=== PATIENT | male | born 1950 | race Caucasian/White ===

== ENCOUNTER 2017-03-15 19:38 | Emergency (ER) | payer MEDICARE, BC ==
[2017-03-15] MEDS ORDERED: KETOROLAC TROMETHAMINE 60 MG/2 ML VIAL IM ONE ×2 (19:57→20:04)
--- NOTE | 2017-03-15 20:10 | ERNOTE ---
Upper Extremity HPI - Narrative Date of Service: 03/15/17 - General Extremities Pain Location: shoulder: left Time Seen by Provider: 03/15/17 19:48 Source: patient Exam Limitations: no limitations - Immun/Allergies/Home Medications Immunizations: IMMUNIZATION HX Immunizations Up to Date Yes History of Influenza Vaccine Yes Hx Pneumococcal Vaccination Yes Allergies/Adverse Reactions: Allergies Allergy/AdvReac Type Severity Reaction Status Date / Time No Known Allergies Allergy Verified 03/15/17 19:48 Home Medications: HOME MEDICATIONS Aspirin [Aspirin Chewable] 81 mg PO DAILY 08/24/12 [Last Taken 08/24/12 08:00] Levothyroxine Sodium [Synthroid] 100 mcg PO DAILY 08/24/12 [Last Taken 08/24/12 08:00] Simvastatin [Zocor] 20 mg PO HS 08/24/12 [Last Taken 08/24/12 08:00] metFORMIN HCL [Glucophage] 500 mg PO BIDWM 08/25/12 [Last Taken 08/24/12] Glimepiride [Amaryl] 2 mg PO DAILY 06/07/14 [Last Taken Unknown] Albuterol Sulfate [Proair Hfa] 1 - 2 puff IH Q4H PRN 06/12/14 [Last Taken Unknown] Blood Sugar Diagnostic, Drum [Accu-Chek Compact] 1 each MC BID 06/12/14 [Last Taken Unknown] Cyanocobalamin [Vitamin B-12] 1,000 mcg PO DAILY 06/12/14 [Last Taken Unknown] Nitroglycerin [Nitrostat] 0.4 mg SL Q5MIN PRN 06/12/14 [Last Taken Unknown] [place]-3 Fatty Acids/Fish Oil [Fish Oil 1,000 mg Capsule] 1 each PO DAILY [Last Taken Unknown] Metoclopramide HCl [Reglan] 10 mg PO QID 11/30/14 [Last Taken Unknown] Pantoprazole Sodium [Protonix] 40 mg PO DAILY 11/30/14 [Last Taken Unknown] Albuterol Sulfate/Ipratropium [Duoneb 2.5-0.5MG/3ML Soln] 3 ml IH Q6H #60 nebu 09/16/15 [Last Taken Unknown] Lisinopril [Zestril] 10 mg PO DAILY 12/19/15 [Last Taken Unknown] oxyCODONE HCL/ACETAMINOPHEN [Percocet 5 MG/325 MG] 1 tab PO Q4H PRN #20 tab [Last Taken Unknown] - History of Present Illness Narrative: Pt. comes in with c/o L shoulder pain after he was holding a grocery bag and dropped it and went to pick it up again and felt several pops in his shoulder. Pt. denies any numbness, tingling, SOB, CP, fever, recent illness, alleviating factors but states that movement exacerbates the pain. Review of Systems - Review of Systems Constitutional: Present: no symptoms reported. Absent: recent illness, fever, chills, weakness, fatigue, malaise EYE: Present: no symptoms reported ENT: Present: no symptoms reported Respiratory: Present: no symptoms reported. Absent: shortness of breath, cough , wheezing Cardiology: Present: no symptoms reported. Absent: chest pain, palpitations, edema Gastrointestinal/Abdominal: Present: no symptoms reported Genitourinary: Present: no symptoms reported Musculoskeletal: Present: joint pain - L shoulder Skin: Present: no symptoms reported. Absent: rash, change in hair/nails Neurological: Present: no symptoms reported. Absent: headache, dizziness/light- headedness, numbness, tingling Endocrine: Present: no symptoms reported Hematologic/Lymphatic: Present: no symptoms reported All Other Systems: All systems neg except as marked - Patient's Past Medical History Patient History - Medical: Diabetes Type 2, GERD, Hypothyroidism Patient History - Cardiac/Respiratory: Cardiac Arrest, COPD Patient History - Cancer: No Hx of Cancer Patient History - Surgical Procedures: T & A, Other Patient History - Other: None - Family History Father Family History - Medical: History Unknown Family History - Cardiac/Respiratory: No pertinent hx - Social History Living Situations: home Abuse History: No History of abuse Psych History: Hx of Anxiety, Hx of Depression Smoking Status: Never smoker Alcohol Use: none Drug Use: none - Immunizations Immunizations Up to Date: Yes Hx Pneumococcal Vaccination: Yes History of Influenza Vaccine: Yes Physical Exam - Physical Exam General Appearance: Present: wd/wn, alert, no apparent distress Head Exam: Present: normal inspection, no evidence of injury Eye Exam: Normal inspection: bilateral Neck: Present: normal inspection, nontender. Absent: lymphadenopathy (R), lymphadenopathy (L) Respiratory: Present: no respiratory distress, normal breath sounds, no accessory muscle use, chest nontender, lungs clear Cardiovascular/Chest: Present: regular rate, rhythm, no murmur, normal peripheral pulses Back Exam: Present: normal inspection Extremity Exam: Present: decreased range of motion - L shoulder abduction Neurological Exam: Present: alert, oriented, normal mood/affect, no motor/ sensory deficits Skin Exam: Present: normal color, warm/dry. Absent: pallor, skin rash ED Progress - Vital Signs Patient's Vital Signs:: I have reviewed the patient's vital signs. Vital Signs: Vital Signs 03/15/17 19:43 Temperature 36.8 C Pulse Rate 101 H Respiratory 18 Rate Blood Pressure 162/86 O2 Sat by Pulse 98 Oximetry - X-Ray X-Ray #1 X-Ray: shoulder Interpretation: Reviewed by me X-ray Comments: No obvious ossious abnormality - Progress/Reassessment Chief Complaint: Shoulder Injury/Pain Progress:: Unchanged Departure Clinical Impression: Biceps muscle strain Qualifiers: Encounter type: initial encounter Laterality: left Qualified Code(s): S46.212A - Strain of muscle, fascia and tendon of other parts of biceps, left arm, initial encounter - Departure Disposition: Home self-care Condition: Good Instructions: Bicipital Tendinitis Additional Instructions: Please call orthopedics office tomorrow for appointment and follow up with them ROME. Wear shoulder immobilizer as much as possible when up. Sleep propped up on pillows with one behind your left arm and supporting at elbow. Referrals: Abel Ramirez MD [Primary Care Provider] - Prescriptions: oxyCODONE HCL/ACETAMINOPHEN [Percocet 5 MG/325 MG] 1 tab PO Q4H PRN #20 tab PRN Reason: Pain
[2017-03-15 20:40] VITALS: BP 115/78
== END 2017-03-15 20:38 | disposition home or self-care (01) ==
LOC: ER 19:38
DX: S46.212A Strain of muscle, fascia and tendon of other parts of biceps, left arm, initial encounter (principal); X58.XXXA Exposure to other specified factors, initial encounter; Y93.89 Activity, other specified

== ENCOUNTER 2019-03-02 16:44 | Inpatient (IN) ==
[2019-03-02] MEDS ORDERED: ASPIRIN 81 MG TAB.CHEW PO ONE (17:07)
[2019-03-02 17:11] LABS: Hematocrit 34.3 % (42.0-52.0); Hemoglobin 11.1 gm/dL (13.5-18.0); Mean Cell Volume 79.2 fl (78-100); Mean Corpuscular Hemoglobin 25.6 pg (27-31); Mean Corpuscular Hgb Conc 32.4 g/dl (32-36); Mean Platelet Volume 7.6 fl (8-11.3); Platelet Count 249 K/mm3 (150-450); Red Blood Count 4.33 M/mm3 (4.7-6.0); Red Cell Distribution Width 17.7 % (11.5-14.0); White Blood Count 6.9 K/mm3 (4.0-10.5)
[2019-03-02] MEDS ORDERED: KETOROLAC TROMETHAMINE 30 MG/ML VIAL IV ONE (17:11)
--- NOTE | 2019-03-02 17:15 | ERNOTE ---
Chest Pain/Cardiac HPI Chief Complaint: Chest Pain Time Seen by Provider: 03/02/19 17:04 Source: patient Exam Limitations: no limitations Immunizations: IMMUNIZATION HX Immunizations Up to Date Yes History of Influenza Vaccine Yes Hx Pneumococcal Vaccination Yes Allergies/Adverse Reactions: Allergies No Known Allergies Allergy (Verified 03/02/19 16:50) Home Medications: HOME MEDICATIONS Aspirin [Aspirin Chewable] 81 mg PO DAILY 08/24/12 [Last Taken 08/24/12 08:00] Blood Sugar Diagnostic, Drum [Accu-Chek Compact] 1 ea MC BID 06/12/14 [Last Taken Unknown] Cyanocobalamin [Vitamin B-12] 1,000 mcg PO DAILY 06/12/14 [Last Taken Unknown] Nitroglycerin [Nitrostat] 0.4 mg SL Q5MIN PRN 06/12/14 [Last Taken Unknown] psyllium seed (sugar) oral powder 1 tbs PO DAILY 11/30/17 [Last Taken Unknown] sertraline 50 mg tablet 50 mg PO DAILY 11/30/17 [Last Taken Unknown] metformin ER 500 mg tablet,extended release 24 hr 1,000 mg PO BID #360 tab 03/05/18 [Last Taken Unknown] folic acid 1 mg tablet 1 mg PO DAILY 04/22/18 [Last Taken Unknown] glycopyrrolate 9 mcg-formoterol 4.8 mcg HFA aerosol inhaler 2 inh IH BID #10.7 g 04/22/18 [Last Taken Unknown] cetirizine 10 mg tablet 10 mg PO DAILY PRN #90 tab 06/11/18 [Last Taken Unknown] alprazolam 0.25 mg tablet See Rx Instructions .ROUTE .COMPLEX #30 tablet 06/14/18 [Last Taken Unknown] insulin lispro (U-100) 100 unit/mL subcutaneous pen See Rx Instructions SUBCUT TID #15 ml 07/08/18 [Last Taken Unknown] blood sugar diagnostic strips See Dose Instructions .ROUTE .MEDSUPPLY #100 ea 07/20/18 [Last Taken Unknown] blood-glucose meter kit See Dose Instructions .ROUTE .MEDSUPPLY #1 ea 07/20/18 [Last Taken Unknown] pen needle, diabetic 32 gauge x 5/32" See Dose Instructions .ROUTE .MEDSUPPLY #100 ea 07/26/18 [Last Taken Unknown] diltiazem CD 240 mg capsule,extended release 24 hr 240 mg PO DAILY #90 cap 08/25/18 [Last Taken Unknown] duloxetine 30 mg capsule,delayed release 30 mg PO DAILY #30 cap 08/25/18 [Last Taken Unknown] ipratropium 20 mcg-albuterol 100 mcg/actuation mist for inhalation 1 puff IH QID #4 g 09/15/18 [Last Taken Unknown] levothyroxine 100 mcg tablet See Rx Instructions .ROUTE .COMPLEX #90 tablet 09/30/18 [Last Taken Unknown] ipratropium-albuterol 0.5 mg-3 mg(2.5 mg base)/3 mL nebulization soln 3 ml IH Q6H #60 nebu 10/04/18 [Last Taken Unknown] insulin glargine (U-100) 100 unit/mL (3 mL) subcutaneous pen 28 unit SUBCUT BID #15 ml 10/13/18 [Last Taken Unknown] lancets 30 gauge See Dose Instructions .ROUTE .MEDSUPPLY #100 ea 10/13/18 [Last Taken Unknown] THC Tablets 0 .ROUTE .MEDSUPPLY #1 ea 11/10/18 [Last Taken Unknown] atorvastatin 20 mg tablet 20 mg PO DAILY #90 tab 01/11/19 [Last Taken Unknown] omeprazole 40 mg capsule,delayed release 40 mg PO DAILY #90 cap 01/11/19 [Last Taken Unknown] losartan 50 mg tablet 50 mg PO DAILY #90 tab 01/12/19 [Last Taken Unknown] oxycodone 10 mg tablet 10 mg PO Q12H PRN #40 tab 01/13/19 [Last Taken Unknown] pen needle, diabetic 32 gauge x 5/32" See Dose Instructions .ROUTE .MEDSUPPLY #200 ea 02/09/19 [Last Taken Unknown] Narrative: Patient presents with left-sided chest wall pain that started approximately 3 hours ago. Pain is reproducible on palpation and is similar pain that he has had for the past 15 years. He is even had a cardiac catheterization to rule out any coronary artery disease as it relates to this chest pain, and the cardiac cath was negative. Timing: constant Severity/Quality: moderate Location: left chest Chest Pain Radiation: no radiation Activities at Onset: none Modifying Factors - Improves: Present: nothing Modifying Factors - Worsens: Present: other - palpation Nitro Today/Relief: no nitro taken today Aspirin Treatment Today: no aspirin today Associated Symptoms: Present: denies symptoms Prior Chest Pain/Cardiac Workup: Reports: cardiac cath - negative Prior Treatment: Reports: recently seen, treated by physician Review of Systems - Review of Systems Constitutional: Present: See HPI EYE: Present: no symptoms reported ENT: Present: no symptoms reported Respiratory: Present: no symptoms reported Cardiology: Present: See HPI Gastrointestinal/Abdominal: Present: no symptoms reported Genitourinary: Present: no symptoms reported Musculoskeletal: Present: no symptoms reported Skin: Present: no symptoms reported Neurological: Present: no symptoms reported Endocrine: Present: no symptoms reported Hematologic/Lymphatic: Present: no symptoms reported Psych: Present: no symptoms reported Medical History (Updated 03/02/19 @ 18:23 by Tiago Pedersen DO) 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 started on Chemo therapy. right middle lobe Thrombopenia (Chronic) Onset Date: ~05/24/18 Hypothyroidism (Chronic) Onset Date: Unknown Hyperlipidemia (Chronic) Onset Date: Unknown GERD (gastroesophageal reflux disease) (Chronic) Onset Date: ~2011 Type 2 diabetes mellitus (Chronic) Onset Date: Unknown controlled with A1c of 6.9 Lantos dose will be decreased to 28 units from 30 twice a day and he will be started on sliding scale before each meal COPD (chronic obstructive pulmonary disease) (Chronic) Onset Date: Unknown Atrial flutter (Chronic) Onset Date: ~2012 s/p DWIGHT cardioversion Cardiac cath 08/28-WNL with normal EF Anxiety and depression (Chronic) Onset Date: Unknown Pneumonitis Onset Date: ~11/17/18 Vertigo Adenocarcinoma of right lung, stage 4 Bone metastasis Onset Date: ~11/17/18 Degenerative joint disease Onset Date: Unknown Hypertension Onset Date: Unknown Hypomagnesemia Onset Date: ~11/17/18 Multiple pulmonary nodules Onset Date: Unknown 06/08/2017--CT chest without contrast. Stable pulmonary nodules. No interval detrimental change. IRAIS (obstructive sleep apnea) Onset Date: Unknown Obesity Onset Date: Unknown Restless leg syndrome Onset Date: Unknown H/O pulmonary function tests Onset Date: ~2015 obstructive, restrictive, mixed ventilator defect preserved ratio impaired spirometry with FEV1-2.29L (60%) Surgical History: Surgical History (Updated 04/29/18 @ 15:57 by Boston Lee) H/O adenoidectomy Onset Date: ~2011 H/O cardiac catheterization Onset Date: ~2012 H/O colonoscopy Onset Date: ~2015 2014-Dr Bro-tubulovillous adenoma, serrated adenoma. 01/2015-UI-7 polyps treated. Tubular adenoma x3, hyperplastic polyp x1. Recheck in 6 months. 2016-Tubular adenoma. Recheck 1 year. History of cardioversion Onset Date: ~2012 Dr Lynn-DWIGHT guided History of esophagogastroduodenoscopy (EGD) Onset Date: ~2014 Hx of tonsillectomy Onset Date: ~2011 Dr Hayward-with directy laryngoscopy with bx, rigid esophagoscopy, flex bronchoscopy, nasal endoscopy, with biopsy. Benign. Family History: Family History (Updated 11/30/17 @ 16:42 by Soledad Elder RN) Father Epilepsy Social History: (Last Updated 03/02/19 @ 16:50 by Cain Rose RN) Social History: long-term: No Marital status: lives independently: No household members: spouse current occupational status: retired Highest education level completed: 6th grade Service: No Tobacco: Smoking Status: Former smoker Alcohol: alcohol intake: former Substance Use: substance use type: unknown Dietary Habits: caffeine: Yes Type: coffee Physical Exam - Physical Exam General Appearance: Present: wd/wn, alert, moderate distress Head Exam: Present: normal inspection, no evidence of injury Eye Exam: Normal inspection: bilateral, PERRL: bilateral Ears, Nose, Throat: Present: normal ENT inspection, H, normal pharynx Neck: Present: normal inspection, nontender Respiratory: Present: no respiratory distress, normal breath sounds, no accessory muscle use, lungs clear, chest tenderness - That reproduces his pain on palpation Cardiovascular/Chest: Present: no murmur, normal peripheral pulses, tachycardia Gastrointestinal/Abdominal: Present: normal bowel sounds, nontender, nondistended, soft, no organomegaly Rectal Exam: Present: deferred Male Genitals Exam: Present: deferred Back Exam: Present: normal inspection, normal range of motion Extremity Exam: Present: normal inspection, non-tender, no edema, normal range of motion Neurological Exam: Present: alert, oriented, normal mood/affect Skin Exam: Present: normal color, warm/dry Lymphatic Exam: Present: no adenopathy Progress - Results and Orders Patient's Lab Results:: I have reviewed the patient's lab results. - Vital Signs Patient's Vital Signs:: I have reviewed the patient's vital signs. Vital Signs: Vital Signs 03/02/19 16:44 03/02/19 16:56 Temperature 36.1 C Pulse Rate 108 H 85 Respiratory Rate 22 H Blood Pressure 158/69 H O2 Sat by Pulse Oximetry 89 L - EKG EKG #1 EKG: NSR EKG read: Reviewed by me - X-Ray X-Ray #1 X-Ray: chest Interpretation: Reviewed by me - Progress/Reassessment Chief Complaint: Chest Pain Plan - Plan Plan: Patient will need to be admitted for correction of his hyponatremia. It is unclear whether this is an absolute or relative hyponatremia. Patient does have underlying lung cancer so it is very possible that this is an absolute hyponatremia. At this point there are no mental status changes and patient will receive a liter of normal saline while Dr. Gomez checks for urine sodium. Departure Clinical Impression: Hyponatremia, Chest wall pain, chronic - Departure Disposition: Still a patient Condition: Fair Referrals: Fam Vallejo MD [Primary Care Provider] -
[2019-03-02 17:17] LABS: Total Cells Counted 100
[2019-03-02 17:21] LABS: Prothrombin Time (Patient) 10.6 Seconds (9.1-10.7)
[2019-03-02 17:22] LABS: INR 1.07 INR (0.92-1.08); Partial Thrombolplastin Time 32.2 Seconds (24-32)
[2019-03-02 17:26] LABS: Eosinophil 2 % (0-3); Lymphocyte 13 % (20-51); Monocyte 7 % (0-9); Neutrophil 78 % (42-75); Neutrophil # 5.4 K/mm3 (1.3-6.0); Platelet Estimate Normal (NORMAL)
[2019-03-02 17:27] LABS: Anisocytosis Trace
[2019-03-02 17:29] LABS: ALT 23 U/L (19-67); AST 20 U/L (0-48); Albumin * 2.8 gm/dl (3.4-5.0); Alkaline Phosphatase * 63 U/L (50-170); Anion Gap 10.8 mmol/L (6.8-13.8); Bilirubin, Total 0.3 mg/dL (0.0-1.1); Blood Urea Nitrogen 7 mg/dL (6-23); Ca. Corrected For Albumin 9.2 mg/dL (8.4-10.2); Calcium * 8.6 mg/dL (7.9-10.9); Carbon Dioxide 25.9 mmol/L (24-32.6); Chloride 84 mmol/L (97-106); Glucose * 91 mg/dL (70-110); Potassium 4.7 mmol/L (3.4-4.6); Total Protein 7.3 gm/dL (6.2-8.2)
[2019-03-02 17:36] LABS: Sodium 116 mmol/L (132-142)
[2019-03-02 17:37] LABS: Troponin I Less than 0.017 ng/mL (0.00-0.10)
[2019-03-02] MEDS ORDERED: NORMAL SALINE 1,000 ML IV ONE (17:57)
[2019-03-02] MEDS ORDERED: oxyCODONE HCL 5 MG TABLET PO PRN (20:25)
[2019-03-02] MEDS ORDERED: LORATADINE 10 MG TABLET PO PRN (20:30)
[2019-03-02] MEDS ORDERED: ALBUTEROL SULFATE IH SCH (21:00)
[2019-03-02] MEDS ORDERED: GLYCOPYRROLATE IH SCH (21:00)
[2019-03-02] MEDS ORDERED: [UNRECOGNIZED DRUG - OTHER] IH SCH (21:00)
[2019-03-02] MEDS ORDERED: [UNRECOGNIZED DRUG - OTHER] IH SCH (21:00)
[2019-03-02] MEDS ORDERED: FORMOTEROL FUM IH SCH (21:00)
[2019-03-02] MEDS ORDERED: IPRATROPIUM IH SCH (21:00)
[2019-03-02] MEDS ORDERED: OXYCODONE PO SCH (22:00)
[2019-03-02] MEDS ORDERED: NON-FORMULARY 1 DOSE DOSE PO SCH (22:00)
[2019-03-02] MEDS ORDERED: FOLIC ACID 1 MG TABLET PO SCH (22:30)
[2019-03-02] MEDS ORDERED: ROSUVASTATIN CALCIUM 10 MG TABLET PO SCH (22:30)
[2019-03-02] MEDS: INSULIN GLARGINE,HUM.REC.ANLOG 100 UNITS/ML VIAL SC SCH (22:44)
[2019-03-02] MEDS ORDERED: INSULIN DETEMIR 100 UNITS/ML VIAL SC ONE (22:45)
[2019-03-02] MEDS: SLOW MAG PO SCH (22:49)
[2019-03-02] MEDS: ROSUVASTATIN CALCIUM 10 MG TABLET PO SCH (22:50)
[2019-03-02] MEDS: FOLIC ACID 1 MG TABLET PO SCH (22:51)
[2019-03-02] MEDS: ONDANSETRON HCL 4 MG TABLET PO PRN (22:51)
[2019-03-02] MEDS: oxyCODONE HCL 5 MG TABLET PO PRN (22:59)
[2019-03-02] MEDS: FLUTICASONE PROPION/SALMETEROL 14 PUFF DISK.W.DEV IH SCH (23:03)
[2019-03-02] MEDS: CALCIUM CARBONATE/VITAMIN D3 1 TAB TABLET PO SCH (23:03)
[2019-03-02] MEDS: ALPRAZolam 0.25 MG TABLET PO SCH (23:03)
[2019-03-03] MEDS ORDERED: ALBUTEROL SULFATE/IPRATROPIUM 3 ML NEBU IH SCH (01:00)
[2019-03-03 05:49] LABS: Anion Gap 7.5 mmol/L (6.8-13.8); BUN/Creatinine Ratio 9.6 (9.0-21.6); Carbon Dioxide 28.9 mmol/L (24-32.6); Estimated Creat Clear 107.9; Potassium 4.4 mmol/L (3.4-4.6)
[2019-03-03] MEDS: oxyCODONE HCL 5 MG TABLET PO PRN ×2 (06:37→19:39)
[2019-03-03] MEDS ORDERED: NORMAL SALINE 1,000 ML IV ONE (06:50)
--- NOTE | 2019-03-03 06:51 | HP ---
Chief Complaint - Chief Complaint Date of Service: 03/03/19 Time of Service: 06:49 Chief Complaint: chest pain History of Present Illness: Pt with PMHx of Stage IV lung cancer, COPD, OA, diabetes, presented to the ED for CP. Workup found hyponatremia, with a sodium of 116. He also had a pleural effusion on the right, which he states has not been present previously. This morning, his sodium improved to 122 after one L of fluid. He states his chest pain is not bad today. He reports having had a negative cath, and his CP has been present for 15 years. Denies acute SOB, nausea, cough, lower extremity swelling. Medical History (Updated 03/03/19 @ 08:25 by Kelsey Gomez DO) 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 started on Chemo therapy. right middle lobe Thrombopenia (Chronic) Onset Date: ~05/24/18 Hypothyroidism (Chronic) Onset Date: Unknown Hyperlipidemia (Chronic) Onset Date: Unknown GERD (gastroesophageal reflux disease) (Chronic) Onset Date: ~2011 Type 2 diabetes mellitus (Chronic) Onset Date: Unknown controlled with A1c of 6.9 Lantos dose will be decreased to 28 units from 30 twice a day and he will be started on sliding scale before each meal COPD (chronic obstructive pulmonary disease) (Chronic) Onset Date: Unknown Atrial flutter (Chronic) Onset Date: ~2012 s/p DWIGHT cardioversion Cardiac cath 08/28-WNL with normal EF Anxiety and depression (Chronic) Onset Date: Unknown Pneumonitis Onset Date: ~11/17/18 Vertigo Adenocarcinoma of right lung, stage 4 Bone metastasis Onset Date: ~11/17/18 Degenerative joint disease Onset Date: Unknown Hypertension Onset Date: Unknown Hypomagnesemia Onset Date: ~11/17/18 Multiple pulmonary nodules Onset Date: Unknown 06/08/2017--CT chest without contrast. Stable pulmonary nodules. No interval detrimental change. IRAIS (obstructive sleep apnea) Onset Date: Unknown Obesity Onset Date: Unknown Restless leg syndrome Onset Date: Unknown H/O pulmonary function tests Onset Date: ~2015 obstructive, restrictive, mixed ventilator defect preserved ratio impaired spirometry with FEV1-2.29L (60%) Surgical History: Surgical History (Updated 03/03/19 @ 06:51 by Kelsey Gomez DO) H/O adenoidectomy Onset Date: ~2011 H/O cardiac catheterization Onset Date: ~2012 H/O colonoscopy Onset Date: ~2015 2014-Dr Bro-tubulovillous adenoma, serrated adenoma. 01/2015-[facility]-7 polyps treated. Tubular adenoma x3, hyperplastic polyp x1. Recheck in 6 months. 2015-Tubular adenoma. Recheck 1 year. History of cardioversion Onset Date: ~2012 Dr Lynn-DWIGHT guided History of esophagogastroduodenoscopy (EGD) Onset Date: ~2014 Hx of tonsillectomy Onset Date: ~2011 Dr Hayward-with directy laryngoscopy with bx, rigid esophagoscopy, flex bronchoscopy, nasal endoscopy, with biopsy. Benign. Family History: Family History (Updated 11/30/17 @ 16:42 by Soledad Elder RN) Father Epilepsy Social History: (Last Updated 03/02/19 @ 23:59 by Tata Vega RN) Social History: halfway: No Marital status: / lives independently: No household members: spouse current occupational status: retired Highest education level completed: 6th grade Service: No Tobacco: Smoking Status: Former smoker Alcohol: alcohol intake: former Substance Use: substance use type: unknown Dietary Habits: caffeine: Yes Type: coffee Review Of Systems (GEN) - Review of Systems Generalized/Overall Review: Absent: Fever Respiratory: Absent: Cough, Shortness of Breath Cardiac: Present: Chest Pain. Absent: Edema Abdominal: Absent: Nausea Genitourinary: Present: No Symptoms Reported Musculoskeletal: Present: Joint Pain - left hip Neurological: Present: No Symptoms Reported Skin: Present: No Symptoms Reported Immunizations: IMMUNIZATION HX Immunizations Up to Date Yes History of Influenza Vaccine Yes Hx Pneumococcal Vaccination Yes Allergies/Adverse Reactions: Allergies Allergy/AdvReac Type Severity Reaction Status Date / Time No Known Allergies Allergy Verified 03/02/19 16:50 Home Medications: HOME MEDICATIONS Aspirin [Aspirin Chewable] 81 mg PO DAILY 08/24/12 [Last Taken 08/24/12 08:00] Blood Sugar Diagnostic, Maria Isabel [Accu-Chek Compact] 1 ea MC BID 06/12/14 [Last Taken Unknown] Cyanocobalamin [Vitamin B-12] 1,000 mcg PO DAILY 06/12/14 [Last Taken Unknown] Nitroglycerin [Nitrostat] 0.4 mg SL Q5MIN PRN 06/12/14 [Last Taken Unknown] psyllium seed (sugar) oral powder 1 tbs PO DAILY 11/30/17 [Last Taken Unknown] sertraline 50 mg tablet 50 mg PO DAILY 11/30/17 [Last Taken Unknown] metformin ER 500 mg tablet,extended release 24 hr 1,000 mg PO BID #360 tab 03/05/18 [Last Taken Unknown] folic acid 1 mg tablet 1 mg PO DAILY 04/22/18 [Last Taken Unknown] cetirizine 10 mg tablet 10 mg PO DAILY PRN #90 tab 06/11/18 [Last Taken Unknown] alprazolam 0.25 mg tablet See Rx Instructions .ROUTE .COMPLEX #30 tablet 06/14/18 [Last Taken Unknown] insulin lispro (U-100) 100 unit/mL subcutaneous pen See Rx Instructions SUBCUT TID #15 ml 07/08/18 [Last Taken Unknown] blood sugar diagnostic strips See Dose Instructions .ROUTE .MEDSUPPLY #100 ea 07/20/18 [Last Taken Unknown] blood-glucose meter kit See Dose Instructions .ROUTE .MEDSUPPLY #1 ea 07/20/18 [Last Taken Unknown] pen needle, diabetic 32 gauge x 5/32" See Dose Instructions .ROUTE .MEDSUPPLY #100 ea 07/26/18 [Last Taken Unknown] diltiazem CD 240 mg capsule,extended release 24 hr 240 mg PO DAILY #90 cap 08/25/18 [Last Taken Unknown] duloxetine 30 mg capsule,delayed release 30 mg PO DAILY #30 cap 08/25/18 [Last Taken Unknown] insulin glargine (U-100) 100 unit/mL (3 mL) subcutaneous pen 28 unit SUBCUT BID #15 ml 10/13/18 [Last Taken Unknown] lancets 30 gauge See Dose Instructions .ROUTE .MEDSUPPLY #100 ea 10/13/18 [Last Taken Unknown] atorvastatin 20 mg tablet 20 mg PO DAILY #90 tab 01/11/19 [Last Taken Unknown] omeprazole 40 mg capsule,delayed release 40 mg PO DAILY #90 cap 01/11/19 [Last Taken Unknown] losartan 50 mg tablet 50 mg PO DAILY #90 tab 01/12/19 [Last Taken Unknown] pen needle, diabetic 32 gauge x 5/32" See Dose Instructions .ROUTE .MEDSUPPLY #200 ea 02/09/19 [Last Taken Unknown] Levothyroxine Sodium [Synthroid] 100 mcg PO DAILY 03/02/19 [Last Taken Unknown] Calcium Carbonate/Vitamin D3 [Calcium 600 + D3 Softgel] 1 ea PO HS 03/03/19 [Last Taken Unknown] Fluticasone Propion/Salmeterol [Advair 250-50 Diskus] 1 puff INH BID 03/03/19 [Last Taken Unknown] Magnesium Chloride [Slow-Mag] 2 tab PO BID 03/03/19 [Last Taken Unknown] Oxycodone Myristate [Xtampza ER] 18 mg PO BID 03/03/19 [Last Taken Unknown] oxyCODONE HCL [Oxycodone HCl] 10 mg PO Q4H PRN 03/03/19 [Last Taken Unknown] Exam - Exam Vital Signs: Vital Signs - Last Taken Temp 36.4 C 03/03/19 00:50 Pulse 83 03/03/19 02:00 Resp 18 03/03/19 00:50 BP 149/63 03/03/19 00:50 Pulse Ox 92 L 03/03/19 05:00 Constitutional: Present: Alert, Cooperative - Intermittently appears to be in left hip pain Respiratory: Present: no respiratory distress, No wheezing, other - using NC Cardiovascular/Chest: Present: regular rate, rhythm Abdomen: Present: soft Extremity: Absent: lower extremity edema Neurologic: Present: normal mood/affect Diagnostic Studies: Abnormal Lab Results 03/02/19 03/02/19 03/02/19 Range/Units 17:05 17:05 17:05 RBC 4.33 L (4.7-6.0) M/mm3 Hgb 11.1 L (13.5-18.0) gm/dL Hct 34.3 L (42.0-52.0) % MCH 25.6 L (27-31) pg RDW 17.7 H (11.5-14.0) % MPV 7.6 L (8-11.3) fl Neutrophils % (Manual) 78 H (42-75) % Lymphocytes % (Manual) 13 L (20-51) % Lymphocytes # (Manual) 0.9 L (1.5-3.5) k/mm3 PTT (Luis) 32.2 H (24-32) Seconds Sodium 116 L* D (132-142) mmol/L Plasma Sodium 116 L* (130-142) mmol/L Potassium 4.7 H (3.4-4.6) mmol/L Chloride 84 L (97-106) mmol/L Albumin 2.8 L (3.4-5.0) gm/dl Ur Random Sodium (20-110) mmol/L 03/02/19 03/03/19 Range/Units 20:07 05:36 RBC (4.7-6.0) M/mm3 Hgb (13.5-18.0) gm/dL Hct (42.0-52.0) % MCH (27-31) pg RDW (11.5-14.0) % MPV (8-11.3) fl Neutrophils % (Manual) (42-75) % Lymphocytes % (Manual) (20-51) % Lymphocytes # (Manual) (1.5-3.5) k/mm3 PTT (Luis) (24-32) Seconds Sodium 122 L (132-142) mmol/L Plasma Sodium 122 L (130-142) mmol/L Potassium (3.4-4.6) mmol/L Chloride 90 L (97-106) mmol/L Albumin (3.4-5.0) gm/dl Ur Random Sodium 17 L (20-110) mmol/L Laboratory Results WBC 6.9 K/mm3 (4.0-10.5) 03/02/19 17:05 RBC 4.33 M/mm3 (4.7-6.0) L 03/02/19 17:05 Hgb 11.1 gm/dL (13.5-18.0) L 03/02/19 17:05 Hct 34.3 % (42.0-52.0) L 03/02/19 17:05 MCV 79.2 fl (78-100) 03/02/19 17:05 MCH 25.6 pg (27-31) L 03/02/19 17:05 MCHC 32.4 g/dl (32-36) 03/02/19 17:05 RDW 17.7 % (11.5-14.0) H 03/02/19 17:05 Plt Count 249 K/mm3 (150-450) 03/02/19 17:05 MPV 7.6 fl (8-11.3) L 03/02/19 17:05 78 % (42-75) H 03/02/19 17:05 13 % (20-51) L 03/02/19 17:05 7 % (0-9) 03/02/19 17:05 2 % (0-3) 03/02/19 17:05 5.4 K/mm3 (1.3-6.0) 03/02/19 17:05 0.9 k/mm3 (1.5-3.5) L 03/02/19 17:05 0.5 k/mm3 (0.0-1.0) 03/02/19 17:05 0.1 k/mm3 (0.0-0.7) 03/02/19 17:05 Normal (NORMAL) 03/02/19 17:05 Trace 03/02/19 17:05 Trace 03/02/19 17:05 PT 10.6 Seconds (9.1-10.7) 03/02/19 17:05 INR (Anticoag Therapy) 1.07 INR (0.92-1.08) 03/02/19 17:05 PTT ([place]) 32.2 Seconds (24-32) H 03/02/19 17:05 Sodium 122 mmol/L (132-142) L 03/03/19 05:36 122 mmol/L (130-142) L 03/03/19 05:36 Potassium 4.4 mmol/L (3.4-4.6) 03/03/19 05:36 Chloride 90 mmol/L (97-106) L 03/03/19 05:36 Carbon Dioxide 28.9 mmol/L (24-32.6) 03/03/19 05:36 7.5 mmol/L (6.8-13.8) 03/03/19 05:36 BUN 7 mg/dL (6-23) 03/03/19 05:36 0.73 mg/dL (0.4-1.4) 03/03/19 05:36 Est GFR (Non-Af Amer) 113 mL/min (60-130) 03/03/19 05:36 9.6 (9.0-21.6) 03/03/19 05:36 79 mg/dL (70-110) 03/03/19 05:36 Calcium 8.0 mg/dL (7.9-10.9) 03/03/19 05:36 Calcium Adj for Albumin 9.2 mg/dL (8.4-10.2) 03/02/19 17:05 Magnesium 1.3 mg/dL (1.2-2.8) 03/02/19 17:05 0.3 mg/dL (0.0-1.1) 03/02/19 17:05 AST 20 U/L (0-48) 03/02/19 17:05 ALT 23 U/L (19-67) 03/02/19 17:05 63 U/L (50-170) 03/02/19 17:05 Less than 0.017 ng/mL (0.00-0.10) 03/02/19 17:05 7.3 gm/dL (6.2-8.2) 03/02/19 17:05 2.8 gm/dl (3.4-5.0) L 03/02/19 17:05 Ur Random Sodium 17 mmol/L (20-110) L 03/02/19 20:07 Assessment/Plan - Assessment/Plan (1) Hyponatremia Assessment: Urine and serum osmolality, and urine sodium pending to help investigate the source of his hyponatremia. It is improved from 116 to 122 after a liter of fluids. Do not want to correct faster than 12 U over a 24-hour period. Will give another liter maintenance fluids. He would very much like to be able to meet his appointment this afternoon. With his multiple comorbidities, including stage IV lung cancer, keeping him in the hospital will reduce his quality of life. If he is still asymptomatic around noon today, will DC and have him follow-up with his PCP to recheck sodium levels. Problem: Acute (2) Chest wall pain, chronic Assessment: Troponins were not elevated, and EKG did not show signs of ischemia or infarct. Could do a stress test after DC if he and his PCP feel like that's appropriate. Problem: Chronic (3) Non-small cell cancer of right lung Assessment: He has a pleural effusion on the right, which he feels like is new. He does not have increased oxygen requirements from baseline. Since he wants to leave the hospital today, will not pursue thoracentesis. Problem: Chronic (4) Pleural effusion Assessment: Likely due to his lung cancer. Could perform therapeutic thoracentesis at follow up if he'd like. Problem: Acute (5) Osteoarthritis of left hip Assessment: He is pursuing hip replacement surgery to help with the pain. Continue current narcotics. Problem: Chronic Qualifiers: Osteoarthritis type: unspecified Qualified Code(s): M16.12 - Unilateral primary osteoarthritis, left hip (6) Hypothyroidism Problem: Chronic Qualifiers: Hypothyroidism type: acquired Qualified Code(s): E03.9 - Hypothyroidism, unspecified (7) Type 2 diabetes mellitus Assessment: Resume home insulin. His glucose levels have been controlled thus far. Problem: Chronic Qualifiers: Diabetes mellitus custodial insulin use: without custodial use Diabetes mellitus complication status: with neurologic complications Diabetes mellitus complication detail: with polyneuropathy Qualified Code(s): E11.42 - Type 2 diabetes mellitus with diabetic polyneuropathy
[2019-03-03] MEDS ORDERED: OXYCODONE HCL 10 MG PO PRN (07:05)
[2019-03-03] MEDS: LEVOTHYROXINE SODIUM 100 MCG TABLET PO SCH (07:39)
[2019-03-03] MEDS: PANTOPRAZOLE SODIUM 40 MG TABLET.EC PO SCH (07:39)
[2019-03-03] MEDS: DILTIAZEM HCL 240 MG CAP.SR.24H PO SCH (08:37)
[2019-03-03] MEDS: ASPIRIN 81 MG TAB.CHEW PO SCH (08:37)
[2019-03-03] MEDS: LOSARTAN POTASSIUM 50 MG TABLET PO SCH (08:38)
[2019-03-03] MEDS: DULoxetine HCL 30 MG CAPSULE.SA PO SCH (08:38)
[2019-03-03] MEDS: SERTRALINE HCL 50 MG TABLET PO SCH (08:39)
[2019-03-03] MEDS: FLUTICASONE PROPION/SALMETEROL 14 PUFF DISK.W.DEV IH SCH ×2 (08:40→20:43)
[2019-03-03] MEDS: PSYLLIUM SEED 1 PACKET PACKET PO SCH (08:42)
[2019-03-03] MEDS: INSULIN GLARGINE,HUM.REC.ANLOG 100 UNITS/ML VIAL SC SCH ×2 (08:54→20:41)
[2019-03-03] MEDS ORDERED: OXYCODONE MYRISTATE 18 MG PO SCH (09:00)
[2019-03-03] MEDS ORDERED: MAGNESIUM CHLORIDE PO SCH (09:00)
[2019-03-03] MEDS ORDERED: FLUTICASONE PROPION/SALMETEROL 14 PUFF DISK.W.DEV IH SCH (09:00)
[2019-03-03] MEDS: SLOW MAG PO SCH ×2 (09:19→20:45)
[2019-03-03] MEDS: OXYCODONE PO SCH ×2 (09:20→20:30)
[2019-03-03] MEDS: INSULIN LISPRO 100 UNITS/ML VIAL SC SCH ×3 (12:08→20:39)
[2019-03-03 12:25] LABS: Anion Gap 10.4 mmol/L (6.8-13.8); BUN/Creatinine Ratio 9.2 (9.0-21.6); Carbon Dioxide 27.2 mmol/L (24-32.6); Estimated Creat Clear 121.2; Potassium 4.6 mmol/L (3.4-4.6)
--- NOTE | 2019-03-03 13:19 | PN ---
Progess Note - Interim Date: 03/03/19 Time: 13:18 Narrative: 03/03/19 13:18 Patient's sodium decreased to 118 despite NS replacement. He has agreed to stay an additional night for further sodium correction. Offered thoracentesis, discussed risks vs benefits, and he'd prefer to avoid thoracentesis unless his respiratory status worsens.
[2019-03-03] MEDS: SODIUM CHLORIDE 3 % 500 ML IV SCH (15:54)
[2019-03-03] MEDS: ONDANSETRON HCL 4 MG TABLET PO PRN (16:42)
[2019-03-03 19:07] LABS: Anion Gap 10.8 mmol/L (6.8-13.8); BUN/Creatinine Ratio 7.2 (9.0-21.6); Calcium * 7.8 mg/dL (7.9-10.9); Carbon Dioxide 26.9 mmol/L (24-32.6); Estimated Creat Clear 114.2; Potassium 4.7 mmol/L (3.4-4.6)
[2019-03-03] MEDS ORDERED: ONDANSETRON HCL/PF 2 MG/ML VIAL IV PRN (19:07)
[2019-03-03 19:08] LABS: Iron 33 mcg/dL (35-120); Transferrin Sat. (% Sat.) 14 % (15-55)
[2019-03-03] MEDS: CALCIUM CARBONATE/VITAMIN D3 1 TAB TABLET PO SCH (20:43)
[2019-03-03] MEDS: FOLIC ACID 1 MG TABLET PO SCH (20:44)
[2019-03-03] MEDS: ROSUVASTATIN CALCIUM 10 MG TABLET PO SCH (20:44)
[2019-03-03] MEDS: ALPRAZolam 0.25 MG TABLET PO SCH (20:45)
[2019-03-04] MEDS: oxyCODONE HCL 5 MG TABLET PO PRN ×3 (00:55→09:18)
[2019-03-04] MEDS ORDERED: ALBUTEROL SULFATE/IPRATROPIUM 3 ML NEBU IH PRN (04:47)
[2019-03-04 05:58] LABS: Albumin * 2.5 gm/dl (3.4-5.0); Anion Gap 9.7 mmol/L (6.8-13.8); BUN/Creatinine Ratio 7.4 (9.0-21.6); Bilirubin, Total 0.2 mg/dL (0.0-1.1); Ca. Corrected For Albumin 9.3 mg/dL (8.4-10.2); Calcium * 8.4 mg/dL (7.9-10.9); Carbon Dioxide 30.4 mmol/L (24-32.6); Potassium 5.1 mmol/L (3.4-4.6); Total Protein 6.5 gm/dL (6.2-8.2)
[2019-03-04] MEDS: PANTOPRAZOLE SODIUM 40 MG TABLET.EC PO SCH (06:35)
[2019-03-04] MEDS: LEVOTHYROXINE SODIUM 100 MCG TABLET PO SCH (06:35)
[2019-03-04] MEDS: INSULIN LISPRO 100 UNITS/ML VIAL SC SCH ×3 (06:37→17:05)
[2019-03-04] MEDS: OXYCODONE PO SCH (09:17)
[2019-03-04] MEDS: SODIUM CHLORIDE 3 % 500 ML IV SCH (09:23)
[2019-03-04] MEDS: FLUTICASONE PROPION/SALMETEROL 14 PUFF DISK.W.DEV IH SCH (09:35)
[2019-03-04] MEDS: DILTIAZEM HCL 240 MG CAP.SR.24H PO SCH (09:36)
[2019-03-04] MEDS: ASPIRIN 81 MG TAB.CHEW PO SCH (09:36)
[2019-03-04] MEDS: LOSARTAN POTASSIUM 50 MG TABLET PO SCH (09:37)
[2019-03-04] MEDS: PSYLLIUM SEED 1 PACKET PACKET PO SCH (09:38)
[2019-03-04] MEDS: DULoxetine HCL 30 MG CAPSULE.SA PO SCH (09:38)
[2019-03-04] MEDS: INSULIN GLARGINE,HUM.REC.ANLOG 100 UNITS/ML VIAL SC SCH (09:39)
[2019-03-04] MEDS: SERTRALINE HCL 50 MG TABLET PO SCH (09:40)
[2019-03-04] MEDS: SLOW MAG PO SCH (09:40)
--- NOTE | 2019-03-04 11:43 | PN ---
Subjective - Date and Time Seen Date: 03/04/19 Time: 08:46 Subjective Narrative: He complains of low back pain, left hip pain and shortness of breath. He would like to go home. Objective - Review of Systems Generalized/Overall Review: Denies: Chills, Fever Respiratory: Reports: Shortness of Breath Cardiac: Denies: Chest Pain Abdominal: Denies: Abdominal Pain Musculoskeletal Complaints: Reports: Joint Pain - Left hip, Back Pain Misc: All systems neg except as marked - Vitals Vitals: Last Vital Signs Temp 36.7 C 03/04/19 10:00 Pulse 102 H 03/04/19 10:00 Resp 22 H 03/04/19 10:00 BP 143/65 03/04/19 10:00 Pulse Ox 92 L 03/04/19 10:10 - Abnormal Lab Findings Abnormal Lab Findings: Abnormal Lab Results 03/03/19 03/03/19 03/03/19 Range/Units 12:08 18:50 18:50 Sodium 118 L* 116 L* (132-142) mmol/L Plasma Sodium 118 L* 117 L* (130-142) mmol/L Potassium 4.7 H (3.4-4.6) mmol/L Chloride 85 L 83 L (97-106) mmol/L BUN 5 L (6-23) mg/dL BUN/Creatinine Ratio 7.2 L (9.0-21.6) Random Glucose 116 H D 149 H (70-110) mg/dL Calcium 7.8 L (7.9-10.9) mg/dL Iron 33 L (35-120) mcg/dL TIBC 242 L (260-445) mcg/dL Transferrin % Sat 14 L (15-55) % Albumin (3.4-5.0) gm/dl 03/04/19 03/04/19 Range/Units 05:40 10:06 Sodium 122 L 123 L (132-142) mmol/L Plasma Sodium 122 L (130-142) mmol/L Potassium 5.1 H (3.4-4.6) mmol/L Chloride 87 L (97-106) mmol/L BUN 5 L (6-23) mg/dL BUN/Creatinine Ratio 7.4 L (9.0-21.6) Random Glucose (70-110) mg/dL Calcium (7.9-10.9) mg/dL Iron (35-120) mcg/dL TIBC (260-445) mcg/dL Transferrin % Sat (15-55) % Albumin 2.5 L (3.4-5.0) gm/dl - Exam Constitutional: Present: Alert, Cooperative, Well developed, Well nourished, Obese ENT Exam: Present: hearing grossly normal Neck: Absent: trachea midline, lymphadenopathy (R) Respiratory: Present: lungs clear - In the left lung field, decreased breath sounds - In the right lower lung field Cardiovascular/Chest: Present: normal peripheral pulses, regular rate, rhythm, no murmur Abdomen: Present: Normal bowel sounds, soft, nontender, distended Extremity: Present: normal inspection, lower extremity edema - 1+ pitting Skin Exam: Present: normal color, warm/dry Neurologic: Present: alert, normal mood/affect Appearance: Present: appropriate appearance Eye contact: Present: cooperative Thoughts: Present: normal thought pattern
[2019-03-04 14:09] LABS: Total Protein 7.3 gm/dL (6.2-8.2)
--- NOTE | 2019-03-04 14:27 | PN ---
Progess Note - Interim Date: 03/04/19 Time: 14:24 Narrative: 03/04/19 14:24 In light of the radiographic findings after the right US guided thoracentesis, I had gone to his room to see him. At the time when I saw him (around 2pm), he was sleeping on his right side comfortably. Was not in any extremis. Review of the vital signs prior to and after the procedure was unremarkable. His heart rate seem mildly elevated, but this is not a change. No evidence for hypotension. The dressing for the thoracentesis was clean and dry, no blood seen. As stated on the chest radiograph report after the procedure, an immediate complication like hemothorax is unlikely, and perhaps the right hemithorax op acification is unrelated to the procedure, can reflect progressively increasing pleural fluid from his underlying diagnosis of malignancy or right lung collapse due to bronchial obstruction. Chest CT would be helpful and is recommended.
[2019-03-04 14:28] LABS: Body Fluid WBC 1002 /uL (0-1000)
--- NOTE | 2019-03-04 14:30 | DS ---
Transfer Discharge Summary - Diagnosis(s)/Problems (1) Acute on chronic respiratory failure with hypoxia and hypercapnia Problem: Acute (2) Hyponatremia Problem: Acute (3) Pleural effusion Problem: Acute (4) Non-small cell cancer of right lung Problem: Chronic (5) Hypothyroidism Problem: Chronic (6) Hyperlipidemia Problem: Chronic (7) GERD (gastroesophageal reflux disease) Problem: Chronic (8) Type 2 diabetes mellitus Problem: Chronic (9) COPD (chronic obstructive pulmonary disease) Problem: Chronic - Course Description of Stay: 69-year-old male with a past medical history of adenocarcinoma of right lung stage IV, obstructive sleep apnea, COPD on home oxygen, atrial Flutter, hypothyroidism, hypertension, hyperlipidemia, obesity, type 2 diabetes mellitus presents to the emergency department with complaints of chest pain. On presentation to the emergency department he was found to have hyponatremia with a sodium of 116. Chest x-ray positive for moderate to large right pleural effusion. He was started on IV fluid with normal saline, he had some improvement of his sodium to 122. His sodium started to downtrend to 118 and he was then started on hypertonic saline. His last sodium was noted to be 123. He was scheduled for a right thoracentesis today on March 04, 2019. He tolerated the procedure well. Radiology removed 1.2 L of clear fluid. Chest x-ray status post procedure was positive for a completely opacified right lung. The patient had increasing confusion prior to and before the thoracentesis. ABG performed after the thoracentesis showed pH of 7.25, pCO2 of 58.3, pO2 63.3, O2 sat of 88.2, base excess -2.8. Due to his respiratory acidosis, history of stage IV adenocarcinoma of the right lung I believe the patient would benefit from a higher level of care. I have been in contact with [facility], Dr. Blue and I will be transferring him to their ICU for further management. Procedures Performed: see notes below Procedures: Right sided thoracentesis with removal of 1.2 L of clear fluid. - Results and Findings Results and Findings: Laboratory Results - last 24 hr 03/03/19 03/03/19 03/03/19 12:08 18:50 18:50 pCO2 pO2 HCO3 Total CO2 Base Excess ABG pH ABG O2 Sat (Measured) Sodium 116 L* Plasma Sodium 117 L* Potassium 4.7 H Chloride 83 L Carbon Dioxide 26.9 Anion Gap 10.8 BUN 5 L Creatinine 0.69 Est GFR (Non-Af Amer) 121 BUN/Creatinine Ratio 7.2 L Random Glucose 149 H Calcium 7.8 L Calcium Adj for Albumin Iron 33 L TIBC 242 L Transferrin % Sat 14 L Total Bilirubin AST ALT Alkaline Phosphatase Lactate Dehydrogenase Total Protein Albumin Vitamin B12 911 Folate Greater than 20.0 Fluid LDH 03/04/19 03/04/19 03/04/19 05:40 10:06 10:06 pCO2 pO2 HCO3 Total CO2 Base Excess ABG pH ABG O2 Sat (Measured) Sodium 122 L 123 L Plasma Sodium 122 L Potassium 5.1 H Chloride 87 L Carbon Dioxide 30.4 Anion Gap 9.7 BUN 5 L Creatinine 0.68 Est GFR (Non-Af Amer) 123 BUN/Creatinine Ratio 7.4 L Random Glucose 101 D Calcium 8.4 Calcium Adj for Albumin 9.3 Iron TIBC Transferrin % Sat Total Bilirubin 0.2 AST 33 ALT 25 Alkaline Phosphatase 55 Lactate Dehydrogenase 245 H Total Protein 6.5 7.3 Albumin 2.5 L Vitamin B12 Folate Fluid LDH 03/04/19 03/04/19 12:53 13:50 pCO2 58.3 H pO2 63.3 L HCO3 25.0 Total CO2 26.8 H Base Excess -2.8 L ABG pH 7.25 L ABG O2 Sat (Measured) 88.2 L Sodium Plasma Sodium Potassium Chloride Carbon Dioxide Anion Gap BUN Creatinine Est GFR (Non-Af Amer) BUN/Creatinine Ratio Random Glucose Calcium Calcium Adj for Albumin Iron TIBC Transferrin % Sat Total Bilirubin AST ALT Alkaline Phosphatase Lactate Dehydrogenase Total Protein Albumin Vitamin B12 Folate Fluid LDH 228 - Medications Medications: Active Medications Albuterol/Ipratropium (Duoneb 2.5-0.5mg/3ml Soln) 3 ml IH Q6H PRN PRN Reason: Shortness Of Breath/Wheezing Stop: 04/03/19 04:48 Last Admin: 03/04/19 05:26 Dose: 3 ml Documented by: Alprazolam (Xanax) 0.25 mg PO HS [facility] Stop: 04/01/19 21:01 Last Admin: 03/03/19 20:45 Dose: Not Given Documented by: Aspirin (Aspirin Chewable) 81 mg PO DAILY [facility] Stop: 04/02/19 09:01 Last Admin: 03/04/19 09:36 Dose: 81 mg Documented by: Calcium/Vitamin D (Calcarb 600 With Vitamin D) 1 tab PO HS [facility] Stop: 04/01/19 22:01 Last Admin: 03/03/19 20:43 Dose: 1 tab Documented by: Diltiazem HCl (Cardizem Cd) 240 mg PO DAILY [facility] Stop: 04/02/19 09:01 Last Admin: 03/04/19 09:36 Dose: 240 mg Documented by: Duloxetine HCl (Cymbalta) 30 mg PO DAILY [facility] Stop: 04/02/19 09:01 Last Admin: 03/04/19 09:38 Dose: 30 mg Documented by: Folic Acid (Folic Acid) 1 mg PO HS [facility] Stop: 04/01/19 22:31 Last Admin: 03/03/19 20:44 Dose: 1 mg Documented by: Sodium Chloride (Hypertonic) (Sodium Chloride 3%) 500 mls @ 30 mls/hr IV .[id number] [facility] Stop: 04/02/19 19:00 Last Admin: 03/04/19 09:23 Dose: 30 mls/hr Documented by: Insulin Glargine (Lantus) 28 units SC BID [facility] Stop: 04/02/19 21:01 Last Admin: 03/04/19 09:39 Dose: 28 units Documented by: Insulin Human Lispro (Humalog) 0 units SC [facility]; Protocol Stop: 04/02/19 12:01 Last Admin: 03/04/19 11:57 Dose: Not Given Documented by: Levothyroxine Sodium (Synthroid) 100 mcg PO QDAC [facility] Stop: 04/02/19 07:01 Last Admin: 03/04/19 06:35 Dose: 100 mcg Documented by: Losartan Potassium (Cozaar) 50 mg PO DAILY [facility] Stop: 04/02/19 09:01 Last Admin: 03/04/19 09:37 Dose: 50 mg Documented by: Metformin HCl (Glucophage Xr) 1,000 mg PO BID [facility] Stop: 04/01/19 21:01 Last Admin: 03/04/19 09:38 Dose: 1,000 mg Documented by: Own Med (Slow Mag (Tabs)) 1 dose PO BID [facility] Stop: 04/01/19 22:01 Last Admin: 03/04/19 09:40 Dose: 1 dose Documented by: Xtampza Er 18 Mg 18 mg PO BID [facility] Stop: 04/02/19 09:01 Last Admin: 03/04/19 09:17 Dose: 18 mg Documented by: Ondansetron HCl (Zofran) 4 mg IV Q6H PRN PRN Reason: Nausea And Vomiting Stop: 04/02/19 19:08 Last Admin: 03/03/19 19:35 Dose: 4 mg Documented by: Oxycodone HCl (Oxycodone) 10 mg PO Q4H PRN PRN Reason: Pain Stop: 04/01/19 20:26 Last Admin: 03/04/19 09:18 Dose: 10 mg Documented by: Pantoprazole Sodium (Protonix) 40 mg PO DAILY@0700 [facility] Stop: 04/02/19 07:01 Last Admin: 03/04/19 06:35 Dose: 40 mg Documented by: Psyllium Hydrophilic Mucilloid (Metamucil) 1 each PO DAILY [facility] Stop: 04/02/19 09:01 Last Admin: 03/04/19 09:38 Dose: 1 each Documented by: Rosuvastatin Calcium (Crestor) 10 mg PO HS [facility] Stop: 04/01/19 22:31 Last Admin: 03/03/19 20:44 Dose: 10 mg Documented by: Fluticasone/Salmeterol (Advair 250-50 Diskus) 1 puff IH BID [facility] Stop: 04/01/19 22:01 Last Admin: 03/04/19 09:35 Dose: 1 puff Documented by: Sertraline HCl (Zoloft) 50 mg PO DAILY [facility] Stop: 04/02/19 09:01 Last Admin: 03/04/19 09:40 Dose: 50 mg Documented by: Discontinued Medications Sodium Chloride (Sodium Chloride 0.9%) 1,000 mls @ 250 mls/hr IV .Q4H ONE Stop: 03/02/19 21:56 Last Infusion: 03/02/19 22:07 Dose: Infused Documented by: Sodium Chloride (Sodium Chloride 0.9%) 1,000 mls @ 150 mls/hr IV .Q6H40M ONE Stop: 03/03/19 13:29 Last Infusion: 03/03/19 14:26 Dose: Infused Documented by: Insulin Detemir (Levemir) 28 units SC ONCE ONE Stop: 03/02/19 22:46 Last Admin: 03/02/19 22:45 Dose: 28 units Documented by: Insulin Glargine (Lantus) 28 units SC BID [facility] Stop: 04/01/19 21:01 Last Admin: 03/03/19 08:54 Dose: Not Given Documented by: Ketorolac Tromethamine (Toradol) 30 mg IV ONCE ONE Stop: 03/02/19 17:12 Last Admin: 03/02/19 17:16 Dose: 30 mg Documented by: Own Med (Xtampza Er (18mg)) 1 dose PO Q12H [facility] Stop: 04/01/19 22:01 Last Admin: 03/02/19 22:49 Dose: 1 dose Documented by: Non-Formulary Medication (Non Formulary Drug) 1 dose PO Q12H [facility] Stop: 04/01/19 22:01 Last Admin: 03/03/19 07:04 Dose: Not Given Documented by: Ondansetron HCl (Zofran) 4 mg PO Q6H PRN PRN Reason: Nausea And Vomiting Stop: 04/01/19 22:04 Last Admin: 03/03/19 16:42 Dose: 4 mg Documented by: - Disposition Disposition: Short Term Hospital Inpatient Condition: Serious
[2019-03-04 14:56] LABS: Body Fluid Appearance CLEAR (CLEAR); Body Fluid Color PALE YELLOW (COLORLESS)
[2019-03-04] MEDS ORDERED: ACETAMINOPHEN 325 MG TABLET PO ONE (16:56)
[2019-03-04] MEDS ORDERED: DEXTROSE 50%-WATER 50 ML SYRG IV ONE (17:25)
[2019-03-04 18:37] VITALS: BP 156/92
== END 2019-03-04 19:11 | disposition short-term general hospital (02) | DRG 186 ==
LOC: ER 16:44 → MS 16:44
PROVIDERS: ADMIT Family Medicine; ATTEND Family Medicine
DX: J96.22 Acute and chronic respiratory failure with hypercapnia; C34.2 Malignant neoplasm of middle lobe, bronchus or lung; Z87.891 Personal history of nicotine dependence; G47.33 Obstructive sleep apnea (adult) (pediatric); E03.9 Hypothyroidism, unspecified; I10 Essential (primary) hypertension; G89.29 Other chronic pain; E87.1 Hypo-osmolality and hyponatremia; J44.1 Chronic obstructive pulmonary disease with (acute) exacerbation; E11.9 Type 2 diabetes mellitus without complications; K21.9 Gastro-esophageal reflux disease without esophagitis; Z99.81 Dependence on supplemental oxygen; E78.5 Hyperlipidemia, unspecified; J96.21 Acute and chronic respiratory failure with hypoxia; R07.9 Chest pain, unspecified; Z79.4 Long term (current) use of insulin; J90 Pleural effusion, not elsewhere classified; I48.92 Unspecified atrial flutter
CPT/HCPCS: 32555; 36415; 36600; 71020; 71046; 76942; 80048; 80053; 82607; 82746; 82803; 83540; 83550; 83615; 83735; 83930; 83935; 84155; 84157; 84295; 84300; 84484; 85025; 85610; 85730; 87070; 87205; 88108; 88305; 89051; 93005; 94640; 94664; 96361; 96374; 99285; G0378; J2405